=== PATIENT | female | born 1995 | race Caucasian/White ===

== ENCOUNTER 2016-07-07 14:44 | Emergency (ER) | payer OTHER ==
[~2016-07-07] VITALS: Ht 160 cm; Wt 54.0 kg
[~2016-07-07 14:44] MED LIST: ACET325T33 PO; CYCL-319 PO
[2016-07-07 14:45] VITALS: Ht 160 cm; Wt 54.0 kg
[2016-07-07] MEDS ORDERED: SOD CHLORIDE 0.9% 1,000 ML IV STA (15:48)
[2016-07-07] MEDS ORDERED: LIDOCAINE/MYLANTA 40 ML BTL PO STA (15:48)
[2016-07-07] MEDS ORDERED: BELLADONNA/PHENOBARBITAL TAB PO STA (15:48)
[2016-07-07 16:13] LABS: ADD SCAN DIFF NO
[2016-07-07 16:14] LABS: URINE BLOOD (Dip) POC Negative (NEGATIVE)
[2016-07-07 16:15] LABS: BASOPHILS % 0.4 % (0.0-2.0); EOSINOPHILS % 0.1 % (0.0-7.0); HEMATOCRIT 39.6 % (37.0-47.0); HEMOGLOBIN 13.2 g/dl (12.0-16.0); LYMPHOCYTES # 1.4 10^3/ul (0.8-2.9); LYMPHOCYTES % 19.9 % (15.0-51.0); MEAN CORPUSCULAR HEMOGLOBIN 30.7 pg (29.0-33.0); MEAN CORPUSCULAR HGB CONC 33.3 g/dl (32.0-37.0); MEAN CORPUSCULAR VOLUME 92.1 fl (82.0-101.0); MEAN PLATELET VOLUME 9.7 fl (7.4-10.4); MONOCYTE # 0.5 10^3/ul (0.3-0.9); MONOCYTES % 6.9 % (0.0-11.0); NEUTROPHILS % 72.6 % (39.0-77.0); PLATELET COUNT 301 10^3/UL (140-415)
[2016-07-07 16:29] LABS: ALBUMIN 4.9 g/dl (3.3-4.9)
[2016-07-07 16:30] LABS: POTASSIUM 3.7 mmol/L (3.5-5.1)
[2016-07-07 16:32] LABS: ALBUMIN/GLOBULIN RATIO 0.92; BILIRUBIN,INDIRECT 0.6 mg/dl (0-1.1); BILIRUBIN,TOTAL 0.6 mg/dl (0.2-1.3); CREATININE 0.66 mg/dl (0.44-1.00); TOTAL PROTEIN 10.2 g/dl (6.1-8.1)
[2016-07-07 16:33] LABS: CALCIUM 9.7 mg/dl (8.4-10.2)
[2016-07-07] MEDS ORDERED: ONDA4TAB14 PO (16:45)
--- NOTE | 2016-07-07 16:51 | ERD ---
ER Documentation Chief Complaint Date/Time DATE: 07/07/16 TIME: 16:46 Chief Complaint N/V/D HPI Patient is a 20-year-old female with a past medical history of lupus, scleroderma and rheumatoid arthritis presents to the emergency department with diffuse abdominal pain, nausea and diarrhea x 5 days. Patient states her symptoms started after spending the past weekend in [place]. Patient reports drinking numerous alcoholic beverages throughout the weekend with minimal food intake. Patient describes her pain to be diffuse in nature. Patient states when eating she has a burning pain in the epigastric region. Patient also reports feeling weak. Patient states she has had 3-4 episodes of watery, nonbloody, green diarrhea since Sunday per day. Patient reports a decrease of appetite decreased p.o. intake. Patient states she was having some vomiting earlier in the week however her vomiting is now resolved. Patient continues to feel nauseous. Patient denies any chest pain, shortness of breath, cough, rhinorrhea, sore throat or LOC. ROS All systems reviewed and are negative except as per history of present illness. Medications Home Meds Active Scripts Famotidine* (Pepcid*) 20 Mg Tablet, 20 MG PO BID for 30 Days, TAB Prov:JOY RIVAS PA-C 07/07/16 Ondansetron (Ondansetron Odt) 4 Mg Tab.rapdis, 4 MG PO Q6H Y for NAUSEA AND/OR VOMITING, #10 TAB Prov:JOY RIVAS PA-C 07/07/16 Cyclobenzaprine Hcl* (Cyclobenzaprine Hcl*) 10 Mg Tablet, 10 MG PO TID, #15 TAB Prov:FERNANDO KEYS PA-C 12/09/15 Acetaminophen* (Tylenol*) 325 Mg Tablet, 1 TAB PO Q6 Y for PAIN AND OR ELEVATED TEMP, #30 TAB Prov:FERNANDO KEYS PA-C 12/09/15 Allergies Allergies: Coded Allergies: vancomycin (Verified Allergy, Severe, anaphalaxis, 01/25/12) PMhx/Soc History of Surgery: No Anesthesia Reaction: No Hx Neurological Disorder: No Hx Respiratory Disorders: No Hx Cardiac Disorders: No Hx Psychiatric Problems: No Hx Miscellaneous Medical Probl: Yes (overlapse syndrome) Hx Alcohol Use: No Hx Substance Use: No Hx Tobacco Use: No FmHx Family History: No diabetes Physical Exam Vitals Vital Signs Date Time Temp Pulse Resp B/P Pulse Ox O2 Delivery O2 Flow Rate FiO2 07/07/16 17:09 98.3 74 20 104/64 98 Room Air 07/07/16 14:45 97.1 95 16 132/88 98 Physical Exam GENERAL: Well-developed, well-nourished female. Appears in no acute distress. HEAD: Normocephalic, atraumatic. EYES: Pupils are equally reactive bilaterally. EOMs grossly intact. No conjunctival erythema. ENT: Dry mucous membranes. No uvula deviation. No kissing tonsils. NECK: Supple. No meningismus. Normal range of motion of the neck. LUNG: Clear to auscultation bilaterally. No rhonchi, wheezing, rales or coarse breath sounds. HEART: Regular rate and rhythm. No murmurs, rubs or gallops. ABDOMEN: Diffuse ecchymosis noted throughout abdominal wall, patient states consistent with scleroderma.. Soft, nontender, and nondistended. Positive bowel sounds in all four quadrants. No rebound tenderness, no guarding. (-) McBurney' s point tenderness. No CVA tenderness. BACK: No midline tenderness. EXTREMITIES: Equal pulses bilaterally. No peripheral clubbing, cyanosis or edema. No unilateral leg swelling. NEUROLOGIC: Alert and oriented. Moving all four extremities without any difficulty. Normal speech. Steady gait. SKIN: Normal color. Warm and dry. No rashes or lesions. Result Diagram: 07/07/16 1600 07/07/16 1600 Results 24 hrs Laboratory Tests Test 07/07/16 16:00 07/07/16 16:15 White Blood Count 7.010^3/ul Red Blood Count 4.3010^6/ul Hemoglobin 13.2g/dl Hematocrit 39.6% Mean Corpuscular Volume 92.1fl Mean Corpuscular Hemoglobin 30.7pg Mean Corpuscular Hemoglobin Concent 33.3g/dl Red Cell Distribution Width 13.0% Platelet Count 50496^3/UL Mean Platelet Volume 9.7fl Neutrophils % 72.6% Lymphocytes % 19.9% Monocytes % 6.9% Eosinophils % 0.1% Basophils % 0.4% Nucleated Red Blood Cells % 0.0/100WBC Neutrophils # 5.010^3/ul Lymphocytes # 1.410^3/ul Monocytes # 0.510^3/ul Eosinophils # 0.010^3/ul Basophils # 0.010^3/ul Nucleated Red Blood Cells # 0.010^3/ul Sodium Level 139mmol/L Potassium Level 3.7mmol/L Chloride Level 99mmol/L Carbon Dioxide Level 27mmol/L Anion Gap 17 Blood Urea Nitrogen 9mg/dl Creatinine 0.66mg/dl Glucose Level 87mg/dl Calcium Level 9.7mg/dl Total Bilirubin 0.6mg/dl Direct Bilirubin 0.00mg/dl Indirect Bilirubin 0.6mg/dl Aspartate Amino Transf (AST/SGOT) 23IU/L Alanine Aminotransferase (ALT/SGPT) 23IU/L Alkaline Phosphatase 115IU/L Total Protein 10.2g/dl Albumin 4.9g/dl Globulin 5.30g/dl Albumin/Globulin Ratio 0.92 Lipase 45U/L Bedside Urine pH (LAB) 6.5 Bedside Urine Protein (LAB) Negative Bedside Urine Glucose (UA) Negative Bedside Urine Ketones (LAB) 2+ Bedside Urine Blood Negative Bedside Urine Nitrite (LAB) Negative Bedside Urine Leukocyte Esterase (L Negative Current Medications Medications (Trade) Dose Ordered Sig/Ricky Route PRN Reason Start Time Stop Time Status Last Admin Dose Admin Sodium Chloride (NS) 1,000 ml @ 1,000 mls/hr Q1H STAT IV 07/07/16 15:48 07/07/16 16:47 DC 07/07/16 16:07 Miscellaneous Medication (Gi Cocktail (2)) 40 ml ONCE STAT PO 07/07/16 15:48 07/07/16 15:50 DC 07/07/16 16:06 Bell[place]onna/ Phenobarbital () 2 tab ONCE STAT PO 07/07/16 15:48 07/07/16 15:50 DC 07/07/16 16:06 Procedures/MDM MEDICAL DECISION MAKING: This is a 20-year-old female who presents with diffuse abdominal pain, nausea and diarrhea 5 days. vital signs were reviewed. Patient is afebrile. Patient was not hypoxic. Abdominal exam is unremarkable. Patient was given a GI cocktail and IV fluids in the emergency department. Patient reports improvement in symptoms. CBC showed no evidence of systemic infection or severe anemia. CMP showed no evidence of electrolyte abnormalities, severe acidosis, alkalosis, renal failure, or liver disease Lipase showed no evidence of acute pancreatitis. Urine dip showed no evidence of acute infection or hematuria. Ketones were noted and urine most likely consistent to dehydration vomiting. Low suspicion for UTI, pyelonephritis or nephrolithiasis. Urine test was negative. At this time, patient's presentation is most consistent with viral syndrome and epigastric pain secondary to recent alcohol use. I have a much lower clinical concern for acute coronary syndrome, AAA, mesenteric ischemia, lower lobe pneumonia, DKA, bowel perforation, bowel obstruction, cholecystitis, choledocholithiasis, pancreatitis, PUD, diverticulitis, UTI, pyelonephritis, nephrolithiasis, appendicitis, , ectopic , infectious diarrhea , colitis, IBD. Unable to rule out GI ulcers at this time. PRESCRIPTIONS: Zofran, Pepcid DISCHARGE: At this time, patient is stable for discharge and outpatient management. Patient provided with a copy of all bloodwork obtained today. Patient advised to refrain from spicy foods, alcoholic beverages, NSAIDS. I have instructed the patient to follow-up with his/her primary care physician in 1-2 days. I have instructed the patient to promptly return to the ER at any time for any new or worsening symptoms including increased pain, nausea, vomiting, diarrhea, fever, weakness or LOC. The patient and/or family expressed understanding of and agreement with this plan. All questions were answered. Home care instructions were provided. Departure Diagnosis: Primary Impression: Diarrhea Diarrhea type: unspecified type Qualified Code: R19.7 - Diarrhea, unspecified type Additional Impression: Abdominal pain Abdominal location: unspecified location Qualified Code: R10.9 - Abdominal pain, unspecified location Condition: Stable Patient Instructions: Treating Diarrhea Additional Instructions: Call your primary care doctor TOMORROW for an appointment during the next 1-2 days.See the doctor sooner or return here if your condition worsens before your appointment time. Continue to drink plenty of fluids. JOY RIVAS PA-C July 07, 2016 16:51
[2016-07-07] MEDS ORDERED: FAMO-18 PO (16:52)
[2016-07-07 17:09] VITALS: BP 104/64; PULSE 74; RESP 20; TEMP 98.3
== END 2016-07-07 17:25 | disposition home or self-care (01) ==
LOC: FTE 14:44
DX: R19.7 Diarrhea, unspecified (principal); R10.13 Epigastric pain
CPT/HCPCS: 80053; 81003; 83690; 85025; J7030; Z7610; 36415